=== PATIENT | male | born 1985 | race Caucasian/White ===

== ENCOUNTER → 2017-03-09 | Outpatient (CLI) | payer OTHER ==
--- NOTE | ~2017-03-09 | CT7 ---
[facility] A Service [facility] RADIOLOGY TEXT RESULTS PATIENT: VINAYAK BARBER LOCATION: [facility] : 85 UNIT #: [id number] AGE: [address]: Manuel Kilgore MD SEX: M ORDER DR: [id number] [address] [id number] O MR#: [id number] Acc #: [id number] NAME: VINAYAK TOMLINSON : 1985 SEX: M STUDY DATE/TIME: 03/09/2017 8:48 UNIT: [facility] ROOM: STUDY DESCRIPTION: CT Abdomen Wo Cont Ordering Physician: Manuel Valdez M.D. MEDICAL IMAGING REPORT This report is preliminary unless electronic signature is present EXAM CT abdomen without contrast INDICATIONS Umbilical pain for [address] abdomen performed with oral contrast only. Coronal and sagittal reformatted images were obtained. This CT exam was performed with one or more of the following radiation dose reduction techniques: automatic exposure control, adjustment of mA and/or kV according to patient size, and iterative reconstruction. COMPARISON STUDIES No comparisons available. FINDINGS Lung bases are clear. The liver, gallbladder, spleen, kidneys, adrenal glands, pancreas are unremarkable. No evidence for bowel obstruction. Fish oil tablet placed on the area of concern in the right side the abdomen. There is no underlying abnormality. No evidence for a hernia. Bone windows are unremarkable. IMPRESSION There is no abnormality located in the area of concern in the patient's abdominal wall. No evidence for hernia. Dictated by... Leonardo Baldwin M.D. THIS IS AN ELECTRONICALLY VERIFIED REPORT [facility] A Service of [facility] RADIOLOGY TEXT RESULTS PATIENT: VINAYAK BARBER LOCATION: [facility] : 85 UNIT #: [id number] AGE: [address]: Manuel Kilgore MD SEX: M ORDER DR: Leonardo Baldwin M.D. at 03/11/2017 4:59 PM ARS/pcl TD: 03/10/2017 14:58 JOB #: [id number] MEDICAL IMAGING REPORT Page 1 of 1 COPY
== END | disposition home or self-care (01) ==
LOC: CCAT 08:18
DX: R10.33 Periumbilical pain (principal)
CPT/HCPCS: 74150